=== PATIENT | male | born 1960 | race African-American/Black ===

== ENCOUNTER 2017-09-14 00:33 | Emergency (ER) | payer SELFPAY ==
[~2017-09-14] VITALS: Ht 177.8 cm; Wt 76.5 kg
--- NOTE | 2017-09-14 00:57 | PHYS DOC ---
Past History Past Medical History: No Pertinent History Past Surgical History: No Surgical History Alcohol Use: Occasionally Drug Use: None Adult General Chief Complaint Chief Complaint: SKIN RASH/ABSCESS HPI HPI 57-year-old male presents with multiple insect bites and rash in the groin. Over the last week, the patient is working outside a lot and he has been noticing several small bug bites that are intensely pruritic. He has been scratching them a lot. Several of them are now open sores. The patient also noticed an erythematous, wet rash in the left side of his groin and around his belly button. He says this does not itch, but the skin is very well. He has been trying to put Vaseline on the area. Finally, the patient is having leg cramps. These started today after he was working outside for a long time. He has been drinking several bottles of water and Gatorade to stay hydrated. He denies headache, dizziness, fever or chills. Review of Systems Review of Systems Constitutional: Denies fever or chills [] Eyes: Denies change in visual acuity, redness, or eye pain [] HENT: Denies nasal congestion or sore throat [] Respiratory: Denies cough or shortness of breath [] Cardiovascular: No additional information not addressed in HPI [] GI: Denies abdominal pain, nausea, vomiting, bloody stools or diarrhea [] : Denies dysuria or hematuria [] Musculoskeletal: Denies back pain or joint pain [] Integument: Multiple insect bites, rash in left groin and periumbilical region[] Neurologic: Denies headache, focal weakness or sensory changes [] Endocrine: Denies polyuria or polydipsia [] All other systems were reviewed and found to be within normal limits, except as documented in this note. Allergies Allergies Allergies Coded Allergies Type Severity Reaction Last Updated Verified No Known Drug Allergies 09/14/17 No Physical Exam Physical Exam Constitutional: Well developed, well nourished, no acute distress, non-toxic appearance. [] HENT: Normocephalic, atraumatic, bilateral external ears normal, oropharynx moist, no oral exudates, nose normal. [] Eyes: PERRLA, EOMI, conjunctiva normal, no discharge. [] Neck: Normal range of motion, no tenderness, supple, no stridor. [] Cardiovascular:Heart rate regular rhythm, no murmur [] Lungs & Thorax: Bilateral breath sounds clear to auscultation [] Abdomen: Bowel sounds normal, soft, no tenderness, no masses, no pulsatile masses. [] Skin: Multiple small insect bites with surrounding excoriation on the bilateral lower extremities and bilateral upper extremity is. Erythematous rash of the left groin and periumbilical region. These areas are raw and the top layer of skin is not present. No bleeding. [] Back: No tenderness, no CVA tenderness. [] Extremities: No tenderness, no cyanosis, no clubbing, ROM intact, no edema. [] Neurologic: Alert and oriented X 3, normal motor function, normal sensory function, no focal deficits noted. [] Psychologic: Affect normal, judgement normal, mood normal. [] Current Patient Data Vital Signs Vital Signs Date Time Temp Pulse Resp B/P (MAP) Pulse Ox O2 Delivery O2 Flow Rate FiO2 09/14/18 00:33 98.2 102 18 100 Room Air EKG EKG [] Radiology/Procedures Radiology/Procedures [] Course & Med Decision Making Course & Med Decision Making Pertinent Labs and Imaging studies reviewed. (See chart for details) The patient's labs are significant for an elevated creatinine of 2.1 with a normal BUN. The patient has not been told he has no abnormal lab in the past. He does not have a doctor in town because he just moved here from [place]. He does admit to some difficulty urinating for the last 4 days. I will check a UA. The patient's urinalysis is negative for infection. He does have some protein in his urine. Given the patient's well appearance and the rest of his labs being normal, I do not believe the patient has to be admitted for an elevated creatinine. It is possible this is a chronic condition though an acute process cannot be ruled out with no baseline to go from. The patient was given a liter of normal saline in the ED. He will continue to hydrate at home. I have encouraged her strongly to find it primary care physician and have follow-up for this lab value. He is in agreement with this plan. If his condition worsens in any way he will return to the emergency room.[] Dragon Disclaimer Dragon Disclaimer This electronic medical record was generated, in whole or in part, using a voice recognition dictation system. Departure Departure: Referrals: PCP,NO (PCP) Scripts Nystatin (NYSTATIN) 15 Gm Cream..g. 1 DINA TP BID, #30 GM Prov: ANGELO KEARNEY DO 09/14/17 Prednisone (PREDNISONE) 50 Mg Tablet 1 TAB PO DAILY, #5 TAB Prov: ANGELO KEARNEY DO 09/14/17 ANGELO KEARNEY DO Sep 14, 2017 00:57
[2017-09-14] MEDS ORDERED: FAMOTIDINE 20 MG/2 ML VIAL IVP ONE (01:00)
[2017-09-14] MEDS ORDERED: IV NORMAL SALINE 1,000ML 1,000 ML IV ONE (01:00)
[2017-09-14] MEDS ORDERED: methylPREDNISolone SOD SUCC PF 125 MG/2 ML VIAL. IV ONE (01:15)
[2017-09-14] MEDS ORDERED: NYST15CR TP (01:20)
[2017-09-14] MEDS ORDERED: PRED50TA PO (01:20)
[2017-09-14 01:29] LABS: BASO % 0 % (0-3); EOS # 0.1 x10^3/uL (0.0-0.7); EOS % 1 % (0-3); HEMATOCRIT 48.1 % (39.0-53.0); HEMOGLOBIN 16.6 g/dL (13.0-17.5); LYMPH # 1.3 x10^3/uL (1.0-4.8); LYMPH % 12 % (24-48); MEAN CORPUSCULAR HEMOGLOBIN 32 pg (25-35); MEAN CORPUSCULAR HGB CONC 35 g/dL (31-37); MEAN CORPUSCULAR VOLUME 92 fL (79-100); MONO % 9 % (0-9); NEUT # 8.6 x10^3uL (1.8-7.7); NEUT % 78 % (31-73); PLATELET COUNT 359 x10^3/uL (140-400); RED BLOOD COUNT 5.26 x10^6/uL (4.30-5.70); RED CELL DISTRIBUTION WIDTH 13.1 % (11.5-14.5); WHITE BLOOD COUNT 10.9 x10^3/uL (4.0-11.0)
[2017-09-14 01:35] LABS: CREATININE 2.1 mg/dL (0.7-1.3); GFR 39.7; POTASSIUM 4.1 mmol/L (3.5-5.1)
[2017-09-14 01:58] LABS: CLARITY,URINE HAZY; COLOR,URINE AMBER
[2017-09-14 02:00] LABS: AMORPHOUS SEDIMENT,UR PRESENT /HPF; BACTERIA,URINE FEW /HPF (0-FEW); BILIRUBIN,URINE NEG (NEG); GLUCOSE,URINE NEG (NEG); NITRITE,URINE NEG (NEG); SQUAMOUS EPITHELIAL CELL,UR FEW /LPF; UROBILINOGEN,URINE 1 mg/dL (0.2 mg/dL); WBC,URINE 0 /HPF (0-4)
[2017-09-14 02:01] LABS: HYALINE CASTS, URINE FEW /HPF
[2017-09-14 02:11] VITALS: BP 142/96
[2017-09-14] MEDS ORDERED: LIDO:MAALOX 1:1 20 ML SINGLE DOSE. PO ONE (02:15)
[2017-09-14] MEDS ORDERED: LIDO:MAALOX 1:1 20 ML SINGLE DOSE. ONE (02:27)
== END 2017-09-14 02:31 | disposition home or self-care (01) ==
LOC: ER 00:33
DX: S30.861A Insect bite (nonvenomous) of abdominal wall, initial encounter (principal); S80.862A Insect bite (nonvenomous), left lower leg, initial encounter; S80.861A Insect bite (nonvenomous), right lower leg, initial encounter; S40.862A Insect bite (nonvenomous) of left upper arm, initial encounter; S40.861A Insect bite (nonvenomous) of right upper arm, initial encounter; W57.XXXA Bitten or stung by nonvenomous insect and other nonvenomous arthropods, initial encounter; Y93.89 Activity, other specified; Y99.8 Other external cause status; Y92.89 Other specified places as the place of occurrence of the external cause
CPT/HCPCS: 36415; 80048; 81001; 85025; 96374; 96375; 99284; J2930; S0028; J7030